=== PATIENT | male | born 1995 | race Caucasian/White ===

== ENCOUNTER 2021-11-13 15:49 | Emergency (ER) | payer SELFPAY ==
[2021-11-13 15:51] VITALS: BP 151/97; PULSE 65; RESP 18; TEMP 36.9
--- NOTE | 2021-11-13 17:59 | ED.GENADULT ---
HPI - General Adult General Chief complaint: Abdominal Pain Stated complaint: abd pain Time Seen by Provider: 11/13/21 17:52 Source: RN notes reviewed History of Present Illness HPI narrative: Patient presents emergency department from home for right groin swelling. Patient states he has had progressive swelling in the right groin for the past 6 weeks states that the area is tender to palpation he denies anything that makes it bigger or smaller [place] she will be told his enlarged lymph nodes became to the emergency department for further evaluation denies any fevers or chills abdominal pain nausea vomiting diarrhea urethral discharge pain with urination or any other symptoms Review of Systems Review of Systems: Gen.: Denies fevers or chills ENT: Denies congestion Respiratory: Denies shortness of breath or cough CV: Denies chest pain or palpitations GI: Denies abdominal pain nausea, emesis or diarrhea denies burning, urgency, frequency or hematuria Musculoskeletal: Denies back pain or muscle pain Neuro: Denies numbness, tingling, weakness or focal weakness Skin: Denies rash Except as documented, all other systems reviewed and negative [facility] Past Medical History Medical History (Updated 11/13/21 @ 20:54 by Storm Johns DO) Patient denies significant medical history Social History Social History (Updated 11/13/21 @ 18:00 by Storm Johns DO) Smoking status: Never smoker Exam Narrative: APPEARANCE: No acute distress, nontoxic, resting in bed HEENT: Normocephalic, atraumatic, OMM RESPIRATORY: No respiratory distress, clear to auscultation bilaterally with no rhonchi wheezing or rales CARDIOVASCULAR: RRR s murmur ABDOMINAL: Soft nondistended nontender to palpation no rebound or guarding, the right inguinal canal has enlarged lymph nodes that are tender to palpation and mobile : No skin lesions seen no erythema or signs of infection no skin wounds no urethral discharge MUSCULOSKELETAl: Moves all extremities. No clubbing, cyanosis or edema. NEURO: Awake and alert. Following commands, speech normal, no focal deficits SKIN:: Warm, dry. Normal Color PSYCHIATRIC: Normal affect/mood Course Course Emergency Course: Patient was seen in the emergency department at [place] today. CT scan obtained from [facility] done at 1142 on 11/13/2021 shows enlarging hyperenhancing right inguinal lymph nodes consistent with nonspecific lymphadenitis. Patient has been prescribed clindamycin which she has filled from that visit today in the emergency department Discussed with patient denies any risk of STD and denies any urethral discharge Discussed with patient results of workup and diagnosis. Discussed need for follow-up with primary care, proper use of medication, and reasons to return to the emergency department. Patient understands and agrees to current treatment plan Vital Signs Vital signs: Vital Signs Temperature 98.4 F 11/13/21 15:51 Pulse Rate 65 11/13/21 15:51 Respiratory Rate 18 11/13/21 15:51 Blood Pressure 151/97 H 11/13/21 15:51 Temperature 98.4 F 11/13/21 15:51 Pulse Rate 65 11/13/21 15:51 Respiratory Rate 18 11/13/21 15:51 Blood Pressure 151/97 H 11/13/21 15:51 Medical Decision Making Vital Signs Vital Signs: Vital Signs Temperature 98.4 F 11/13/21 15:51 Pulse Rate 65 11/13/21 15:51 Respiratory Rate 18 11/13/21 15:51 Blood Pressure 151/97 H 11/13/21 15:51 Temperature 98.4 F 11/13/21 15:51 Pulse Rate 65 11/13/21 15:51 Respiratory Rate 18 11/13/21 15:51 Blood Pressure 151/97 H 11/13/21 15:51 Lab Data Result diagrams: 11/13/21 18:18 11/13/21 18:18 Labs: Lab Results 11/13/21 11/13/21 11/13/21 Range/Units 18:18 18:18 18:54 WBC 9.8 (4.5-10.0) K/mm3 RBC 5.20 (4.6-6.20) M/mm3 Hgb 16.0 (14.0-18.0) g/dL Hct 47.6 (42.0-52.0) % MCV 91.5 (80-100) fl MCH 30.8 (26-34) pg MCHC
[2021-11-13 18:26] LABS: Basophils Absolute Auto 0.1 K/mm3 (0.0-0.1); Basophils Percent Auto 0.7 % (0.2-1.2); Eosinophils Absolute Auto 0.4 K/mm3 (0-0.3); Eosinophils Percent Auto 4.2 % (0-4.4); Hematocrit 47.6 % (42.0-52.0); Immature Granulocyte Absolute 0.02 K/mm3 (0.00-0.031); Immature Granulocyte Percent A 0.2 % (0-0.5); Lymphocytes Absolute Auto 3.48 K/mm3 (0.9-3.2); Lymphocytes Percent Auto 35.4 % (18.3-44.2); Mean Corpuscular HGB Conc 33.6 g/dl (32-36); Mean Corpuscular Hemoglobin 30.8 pg (26-34); Mean Corpuscular Volume 91.5 fl (80-100); Mean Platelet Volume 9.7 fl (7.4-10.4); Monocytes Absolute Auto 1.1 K/mm3 (0.1-0.6); Monocytes Percent Auto 11.4 % (2.6-8.5); Neutrophils Absolute Auto 4.7 K/mm3 (1.3-6.7); Neutrophils Percent Auto 48.1 % (45.5-73.1); Platelet Count Result 280 k/mm3 (150-375); Red Cell Distribution Width 12.2 % (11.5-14.5); White Blood Count 9.8 K/mm3 (4.5-10.0)
[2021-11-13 18:32] LABS: Alanine Aminotransferase 40 U/L (4-50); Albumin Level 4.6 g/dL (3.5-5.1); Alkaline Phosphatase 88 U/L (38-126); Anion Gap 5 mmol/L (8-16); Aspartate Amino Transferase 31 U/L (17-59); Bilirubin,Total 0.4 mg/dL (0.2-1.3); Blood Urea Nitrogen 11 mg/dL (9-20); Calcium 9.4 mg/dL (8.4-10.2); Carbon Dioxide 28 mmol/L (22-30); Chloride 103 mmol/L (98-107); Estimated CRCL calculation 105 ml/min; Estimated Glomerular Filt Rate > 60; Glucose 108 mg/dL (65-110); Potassium 4.5 mmol/L (3.4-5.0); Sodium 136 mmol/L (137-145)
[2021-11-13 19:04] LABS: Add Urine Microscopic? YES; Appearance Urine Clear (Clear); Bilirubin Urine Negative (Negative); Blood Urine Negative (Negative); Color Urine Yellow (Yellow); Glucose Urine UA Negative (Negative); Ketones Urine Negative (Negative); Leukocyte Esterase Ur Negative LEU/UL (Negative); Mucus Urine Rare /lpf; Nitrate Urine Negative (Negative); Protein Urine Negative (Negative); RBC Urine 0-2 /hpf (0-2); WBC Urine 0-3 /hpf
[2021-11-13 19:06] LABS: Specific Grav Ur 1.043 (1.001-1.035)
--- NOTE | 2021-11-13 20:09 | PC.NURSE ---
PT REPORTS HE HAD CT WITH CONTRAST TODAT AT [facility]
[2021-11-13 21:06] VITALS: BP 145/88; PULSE 70; RESP 18; O2SAT 99
== END 2021-11-13 21:09 | disposition home or self-care (01) ==
PROVIDERS: Emergency Provider Emergency Medicine
DX: I88.9 Nonspecific lymphadenitis, unspecified (principal)
CPT/HCPCS: 36415; 80053; 81001; 85025; 87491; 87591; 99283